=== PATIENT | female | born 1985 | race Caucasian/White ===

== ENCOUNTER 2019-12-13 22:46 | Emergency (ER) | payer OTHER, BC ==
[~2019-12-13] VITALS: Ht 154.9 cm; Wt 59.8 kg
[2019-12-13 22:52] VITALS: BP 113/78
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
--- OUTSIDE RECORDS SUMMARY | 2019-12-13 23:09 | XMS REPORT ---
Author Author Cathy MALIK Organization [facility] Address [address] [place] [address] Care Team Providers Care Incident Response Consultant Name Role Phone REN MALIK Unavailable PROBLEMS Unknown Problems ALLERGIES No Information ENCOUNTERS Encounter Location Date [facility] [address] [facility] [id number] [place] [address] [id number] Jul, [address] [facility] [address] [id number] [id number] May, Non-intractable vomiting wit hout nausea, unspecified vomiting type R11.11 IMMUNIZATIONS No Known Immunizations SOCIAL HISTORY Never Assessed REASON FOR VISIT Update Demographics - Personal Info PLAN OF CARE VITAL SIGNS MEDICATIONS Unknown Medications RESULTS No Results PROCEDURES No Known procedures INSTRUCTIONS MEDICATIONS ADMINISTERED No Known Medications MEDICAL (GENERAL) HISTORY Type Description Date Surgical History No know Surgical history
[2019-12-13] MEDS ORDERED: TETANUS,DIPTH,PERTUSS P/F (BOOSTRIX) 0.5 ML VIAL IM ONE (23:15)
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
== END 2019-12-13 23:59 | disposition home or self-care (01) ==
LOC: ER 22:50
DX: S60.211A Contusion of right wrist, initial encounter (principal); S60.221A Contusion of right hand, initial encounter; S50.11XA Contusion of right forearm, initial encounter; R40.2142 Coma scale, eyes open, spontaneous, at arrival to emergency department; R40.2252 Coma scale, best verbal response, oriented, at arrival to emergency department; R40.2362 Coma scale, best motor response, obeys commands, at arrival to emergency department; Z23 Encounter for immunization; V49.40XA Driver injured in collision with unspecified motor vehicles in traffic accident, initial encounter
CPT/HCPCS: 73110; 90715

== ENCOUNTER → 2020-02-14 | Outpatient (REF) ==
--- NOTE | 2020-02-14 14:35 | Diagnostic Imaging Report ---
INDICATION: Pain. EXAMINATION: Three views were obtained. FINDINGS: The alignment is normal. There is no fracture or dislocation. Soft tissues are unremarkable. IMPRESSION: No acute fracture or dislocation. Dictated by: Dictated on workstation # [id number]
== END ==
LOC: OCC 13:57
PROVIDERS: ATTEND Nurse Practitioner Family
DX: M79.641 Pain in right hand (principal)
CPT/HCPCS: 73130